=== PATIENT | female | born 1960 | race Caucasian/White ===

== ENCOUNTER 2016-10-23 10:57 | Emergency (ER) | payer OTHER ==
[2016-10-23 11:07] VITALS: RESP 16
[2016-10-23] MEDS: LET GEL TOPICAL 1 EA SYR TP ONE (11:51)
--- NOTE | 2016-10-23 11:58 | EDPHY ---
H & P Stated Complaint: L thumb--poss nail inf--on keflex x 3 days Time Seen by Provider: 10/23/16 11:58 HPI/ROS: HPI: This is a 55-year-old female who presents with Chief Complaint: Left thumb infection Location: Left thumb Quality: Infection Duration: 1 month Signs and Symptoms: + redness, + warmth, + fluctuance, No bleeding, no radiation , no numbness, no weakness, no tingling, no decreased range of motion Timing: Worsening Severity: Moderate Context: Patient reports that she had a nail injury on her thumb at . Several months ago she had an infection in the same thumb that cleared with antibiotics. She has been taking antibiotics, Keflex, x 3 days but admits incorrectly and not 3 times a day per recommendation. She went to her sql server bi developer for wound check today who noted the infection to be worse; he attempted to perform a digital block and incise and drain the abscess but the patient was unable to tolerate. She was directed to come to the emergency room for further evaluation and care. No history MRSA. Of note she tested negative for fungal infection. Right-hand dominant. Modifying Factors: Keflex Comment: ROS: Constitutional: No fever, no chills, no weight loss Eyes: No blurred vision Respiratory: No shortness of breath, no cough Cardiovascular: No chest pain Gastrointestinal: No nausea, no vomiting no diarrhea Genitourinary: No dysuria Extremities: No myalgias Neurologic: No weakness, no numbness Skin: No rashes Hematologic: No bruising, no bleeding Source: Patient Exam Limitations: No limitations - Personal History Current Tetanus/Diphtheria Vaccine: Unsure Current Tetanus Diphtheria and Acellular Pertussis (TDAP): Unsure - Medical/Surgical History Hx Asthma: No Hx Chronic Respiratory Disease: No Hx Diabetes: No Hx Cardiac Disease: No Hx Renal Disease: No Hx Cirrhosis: No Hx Alcoholism: No Hx HIV/AIDS: No Hx Splenectomy or Spleen Trauma: No Other PMH: hypothyroid - Social History Smoking Status: Never smoked - Physical Exam Exam: CONSTITUTIONAL: Tearful adult white female, awake and alert, no obvious distress HEENT: Atraumatic and normocephalic, PERRL, EOMI. Tympanic membranes clear. Oropharynx clear, no exudate and moist pink mucosa. Airway patent. No lymphadenopathy. No meningismus. Cardiovascular: Normal S1/S2, regular rate, regular rhythm, without murmur rub or gallop. PULMONARY/CHEST: Symmetrical and nontender. Clear to auscultation bilaterally. Good air movement. No accessory muscle usage. ABDOMEN: Soft, nondistended, nontender, no rebound, no guarding, no peritoneal signs, no masses or organomegaly. No CVAT. EXTREMITIES: 2/2 pulses, left thumb moderate erythema/swelling/exquisitely tender to palpation with fluctuance noted inferior to nail fold to tip of distal phalanx. Flexion/extension/light touch sensation intact DIP/PIP/MCP joints. no deformities, no clubbing, no cyanosis or edema. NEUROLOGICAL: no focal neuro deficits. GCS 15. SKIN: Warm and dry, no erythema. no rash. Good capillary refill. Constitutional: Initial Vital Signs Temperature (C) 36.5 C 10/23/16 11:05 Heart Rate 89 10/23/16 11:05 Respiratory Rate 16 10/23/16 11:05 Blood Pressure 158/87 H 10/23/16 11:05 O2 Sat (%) 97 10/23/16 11:05 O2 Delivery Mode Room Air Allergies/Adverse Reactions: acetaminophen [From Vicodin] Allergy (Verified 10/23/16 11:03) hydrocodone [From Vicodin] Allergy (Verified 10/23/16 11:03) Home Medications: Medication Instructions Recorded CEPHALEXIN 10/23/16 Clindamycin HCl [Clindamycin] 300 mg PO TID #21 cap 10/23/16 Levothyroxine 10/23/16 Medical Decision Making Procedures: Procedure: Abscess drainage. The patient's abscess was located on the left thumb tip. I obtained verbal consent from the patient to drain the abscess who was informed about the possibility of bleeding and pain. The area was anesthetized with 4 mL 1% Lidocaine using a digital finger block. The abscess was incised using a stab incision with 18 gauge needle and 5 mL amount of purulent drainage was expressed. I irrigated the wound, soaked in warm water and Betadine 50/50 mixture. The patient tolerated the procedure well. The procedure was performed by myself. ED Course/Re-evaluation: Due to exquisite pain; patient would not allow me to do a digital block. Let topical applied 1st. Wound culture obtained Large amount of purulent drainage expressed. Soaked in 50/50 solution of warm normal saline and Betadine. Xeroform and clean sterile dressing placed. Extensive wound care instructions both verbal and written given and given Hand surgery to follow up for wound check in 2-3 days if not improving. Differential Diagnosis: Differential includes paronychia, tenosynovitis, cellulitis. - Data Points Medications Given: Discontinued Medications Clindamycin (Clindamycin) 300 mg PO EDNOW ONE PRN Reason: Protocol Stop: 10/23/16 12:42 Last Admin: 10/23/16 12:54 Dose: 300 mg Tetracaine/Epinephrine/Lidocaine (Let Gel Topical) 1 ea TP EDNOW ONE Stop: 10/23/16 11:42 Last Admin: 10/23/16 11:51 Dose: 1 ea Departure - Departure Disposition: Home, Routine, Self-Care Clinical Impression: Paronychia of finger Qualifiers: Laterality: left Qualified Code(s): L03.012 - Cellulitis of left finger Condition: Good Instructions: Paronychia (ED) Additional Instructions: Keep the dressing in place for 48 hours. After 48 hours, you may remove the dressing; wash the site daily with mild soap and water; then pat dry. Take ibuprofen 600 mg every 6-8 hours with food as needed for pain and inflammation. Take all antibiotics as directed until completed. Follow-up with wound check in 2-3 days. Referrals: Belen Booker MD [Primary Care Provider] - As per Instructions Shabbir Yost MD [Medical Doctor] - As per Instructions Prescriptions: Clindamycin HCl [Clindamycin] 300 mg PO TID #21 cap
[2016-10-23] MEDS: CLINDAMYCIN 150 MG CAP PO ONE (12:54)
[2016-10-23 13:32] VITALS: BP 140/86; PULSE 54; TEMP 98.2; O2SAT 95
== END 2016-10-23 13:40 | disposition home or self-care (01) ==
PROC: 0H9GXZZ Drainage of Left Hand Skin, External Approach (ICD-10-PCS; principal; 2016-10-23)
DX: L03.012 Cellulitis of left finger (principal)